=== PATIENT | female | born 2000 ===

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

== ENCOUNTER → 2019-01-02 | Outpatient (CLI) | payer OTHER | LOC: LAB 11:45 → LAB SHORT 11:45 | DX: N89.8 Other specified noninflammatory disorders of vagina (principal) | CPT/HCPCS: 87070; 87205 ==